=== PATIENT | female | born 1965 | race Caucasian/White ===

== ENCOUNTER → 2018-11-11 12:11 | Outpatient (CLI) | payer OTHER, SELFPAY ==
--- NOTE | 2018-11-11 12:14 | DI.RAD.S_ITS ---
PROCEDURE: XR CHEST 2V INDICATIONS: Cough TECHNIQUE: 2 views of the chest were acquired. COMPARISON: [facility], , CHEST 2 VIEW, 02/26/2009, 15:44. FINDINGS: Surgical changes and devices: None. Lungs and pleura: Lungs are clear. No pleural effusions or pneumothorax. Mediastinum: Mediastinal contours are normal. Heart size is normal. Bones and chest wall: No suspicious bony abnormalities. Soft tissues appear unremarkable. IMPRESSION: Normal for age, source of current cough symptoms is not seen. Dictated by: Yasmany Olea M.D. on 11/11/2018 at 13:08 Approved by: Yasmany Olea M.D. on 11/11/2018 at 13:09
== END ==
PROVIDERS: Visit Provider Registered Nurse
DX: R05 Cough (principal)
CPT/HCPCS: 71046

== ENCOUNTER → 2019-01-03 09:48 | Outpatient (CLI) | payer OTHER, SELFPAY ==
[2019-01-03 10:41] LABS: BUN Creatinine Ratio 17.5 (6-22); Blood Urea Nitrogen 14 mg/dL (7-17); Calcium 9.6 mg/dL (8.4-10.2); Carbon Dioxide 30 mmol/L (22-32); Chloride 103 mmol/L (98-107); Cholesterol 226 mg/dL (140-199); Estimated Glomerular Filt Rate > 60.0 mL/min (>60); Glucose 117 mg/dL (70-100); HDL Cholesterol 30 mg/dL (40-60); HEMOLYSIS < 15 (0-50); Potassium 4.4 mmol/L (3.4-5.1); Sodium 140 mmol/L (137-145); Triglycerides 461 mg/dL (35-150)
[2019-01-03 10:45] LABS: Creatinine Urine Random 171.2 mg/dL; Microalbumi Creatinin Ratio Ur 4.6 ug/mg CR (<30); Microalbumin Urine Random 0.8 mg/dL (0-1.6)
[2019-01-03 11:16] LABS: TSH w/ Reflex to FT4 4.02 uIU/mL (0.47-4.68)
== END ==
PROVIDERS: PCP Registered Nurse; Visit Provider Registered Nurse
DX: I10 Essential (primary) hypertension (principal)
CPT/HCPCS: 36415; 80048; 80061; 82043; 82570; 84443

== ENCOUNTER → 2019-01-04 09:59 | Outpatient (CLI) | payer OTHER, SELFPAY ==
[2019-01-04 11:09] LABS: Hemoglobin A1C% w Est Avg Glu 5.4 % (4.0-6.0)
== END ==
PROVIDERS: PCP Registered Nurse; Visit Provider Registered Nurse
DX: R73.9 Hyperglycemia, unspecified (principal)
CPT/HCPCS: 36415; 83036

== ENCOUNTER → 2019-05-02 13:31 | Outpatient (CLI) | payer OTHER, SELFPAY ==
--- NOTE | 2019-05-02 13:32 | DI.US.S_ITS ---
LIMITED ULTRASOUND OF LEFT BREAST: 05/02/2019 CLINICAL: Palpable, painful left breast lump. Comparison is made to exams dated: 05/02/2019 mammogram, 09/11/2016 mammogram - [facility], and 11/07/2012 mammogram - [facility]. Color flow and real-time ultrasound of the left breast 2-3 o'clock region were performed. Dinh scale images of the real-time examination were reviewed. Targeted ultrasound was performed in the region of the patient's reported focal painful palpable area of concern in the lateral left breast at 2:00 position 7 cm from the nipple (as indicated by the patient). No underlying breast mass or abnormality is identified. IMPRESSION: NEGATIVE 1) No ultrasound findings to explain patient's reported focal painful palpable area of concern in the lateral left breast at 2:00 position 7 cm from the nipple. Recommend clinical follow-up for further evaluation and management of the patient's reported symptoms. 2) There is no sonographic evidence of malignancy in the imaged areas of the lateral left breast. Return to annual screening mammography schedule is recommended. The patient is advised to monitor her breasts and to return sooner for re-evaluation should she feel anything grow or change. This exam was interpreted at Station ID: [id number]. Electronically Signed By: Alban Davis M.D. ecl/:05/02/2019 14:48:35 letter sent: Clinical Evaluation Ultrasound BI-RADS: 1 Negative
--- NOTE | 2019-05-02 13:32 | DI.MG.S_ITS ---
BILATERAL DIGITAL DIAGNOSTIC MAMMOGRAM 3D/2D: 05/02/2019 CLINICAL: Left breast lump with associated focal pain. Comparison is made to exams dated: 09/11/2016 mammogram - [facility] and 11/07/2012 mammogram - [facility]. There are scattered fibroglandular elements in both breasts. There is a triangular marker overlying the skin of the lateral left breast at the site of the patient's reported focal painful palpable breast abnormality. There is no underlying mass or abnormality on mammography. There is an asymmetry in the right breast central to the nipple at anterior depth which resolves with spot compression and tomosynthesis views, consistent with resolved summation artifact from superimposed benign fibroglandular tissues. There is an asymmetry in the superior right breast at middle depth which resolves with spot compression and tomosynthesis views, consistent with resolved summation artifact from superimposed benign fibroglandular tissues. No other significant masses, calcifications, or other findings are seen in either breast. IMPRESSION: INCOMPLETE: NEEDS ADDITIONAL IMAGING EVALUATION No mass or abnormality on mammography to correlate with the site of the patient's reported focal painful palpable abnormality of the lateral left breast. Targeted diagnostic ultrasound recommended for further evaluation, which will be performed immediately following this exam. This exam was interpreted at Station ID: [id number]. NOTE: For mammograms, a report in lay terms will be sent to the patient. Approximately 15% of breast malignancies will not be visualized mammographically. In the management of a palpable breast mass, a negative mammogram must not discourage biopsy of a clinically suspicious lesion. Electronically Signed By: Alban Davis M.D. ecl/:05/02/2019 14:45:22 ACR BI-RADS Category 0: Incomplete [id number]
== END ==
PROVIDERS: PCP Registered Nurse; Visit Provider Registered Nurse
DX: R92.8 Other abnormal and inconclusive findings on diagnostic imaging of breast (principal); N63.21 Unspecified lump in the left breast, upper outer quadrant; N64.4 Mastodynia
CPT/HCPCS: 76642; 77066; G0279

== ENCOUNTER → 2020-07-22 16:39 | Outpatient (CLI) | payer OTHER, SELFPAY ==
--- NOTE | 2020-07-22 17:05 | DI.RAD.S_ITS ---
PROCEDURE: XR ACUTE ABDOMEN SERIES INDICATIONS: acute abd pain, RLQ TECHNIQUE: One view chest and two views of the abdomen were acquired. COMPARISON: [facility], CR, XR ACUTE ABDOMEN SERIES, 10/07/2017, 10:39. FINDINGS: Surgical changes and devices: None. Chest: Lungs are clear. Heart size is normal. No pleural effusions. No pneumoperitoneum. Abdomen: Bowel gas pattern is normal. No suspicious calcifications. Visualized solid organ contours appear normal. Bones: No suspicious bony lesions. IMPRESSION: Normal bowel gas pattern, no sign of intestinal obstruction or perforation. Depending on the clinical status follow-up by CT scanning may become necessary. Dictated by: Yasmany Olea M.D. on 07/22/2020 at 18:31 Approved by: Yasmany Olea M.D. on 07/22/2020 at 18:32
--- NOTE | 2020-07-22 17:50 | DI.RAD.S_ITS ---
PROCEDURE: XR ELBOW RT MIN 3V INDICATIONS: right elbow pain TECHNIQUE: 3 views of the elbow were acquired. COMPARISON: None. FINDINGS: Bones: No fractures or dislocations. No suspicious bony lesions. Soft tissues: No elbow joint effusion. No suspicious soft tissue calcifications. IMPRESSION: Normal for age, source of current right elbow pain symptoms is not seen. Dictated by: Yasmany Olea M.D. on 07/22/2020 at 18:29 Approved by: Yasmany Olea M.D. on 07/22/2020 at 18:29
[2020-07-22 18:26] LABS: Add Manual Diff / Slide Review NO; Basophils Absolute Auto 100 /uL (0-100); Basophils Percent Auto 0.8 % (0-2); Eosinophils Absolute Auto 200 /uL (0-450); Eosinophils Percent Auto 2.7 % (2-4); Hematocrit 42.9 % (36-46); Hemoglobin 15.2 g/dL (12.0-16.0); Lymphocytes Absolute Auto 2500 /uL (1100-4500); Lymphocytes Percent Auto 34.7 % (25-40); Mean Corpuscular HGB Conc 35.3 % (30-36); Mean Corpuscular Hemoglobin 30.6 PG (26-34); Mean Corpuscular Volume 86.6 fL (80-100); Monocytes Absolute Auto 400 /uL (0-900); Monocytes Percent Auto 6.3 % (3-14); Neutrophils Absolute Auto 3900 /uL (1500-7000); Neutrophils Percent Auto 55.5 % (50-75); Platelet Count 177 X10^3/uL (150-400); Red Blood Cell Count 4.96 X10^6/uL (4.0-5.2); Red Cell Distribution Width 13.7 % (11.6-14.8); White Blood Cell Count 7.1 X10^3/uL (4.5-11.0)
[2020-07-22 18:43] LABS: Alanine Aminotransferase 35 IU/L (<35); Albumin 4.6 g/dL (3.5-5.0); Albumin Globulin Ratio 1.7 (1.0-2.8); Alkaline Phosphatase 85 U/L (38-126); Aspartate Aminotransferase 32 IU/L (14-36); BUN Creatinine Ratio 18.1 (6-22); Bilirubin Total 0.6 mg/dL (0.2-1.3); Blood Urea Nitrogen 15 mg/dL (7-17); Calcium 9.8 mg/dL (8.4-10.2); Carbon Dioxide 31 mmol/L (22-32); Chloride 104 mmol/L (98-107); Estimated Glomerular Filt Rate > 60.0 mL/min (>60); Globulin 2.7 g/dL (1.7-4.1); Glucose 101 mg/dL (70-100); HEMOLYSIS < 15 (0-50); Potassium 3.9 mmol/L (3.4-5.1); Sodium 140 mmol/L (137-145); Total Protein 7.3 g/dL (6.3-8.2)
[2020-08-01 13:02] LABS: Urea Breath Test >18YRS Negative
== END ==
PROVIDERS: PCP Registered Nurse; Referring Provider Registered Nurse; Visit Provider Registered Nurse
DX: R10.9 Unspecified abdominal pain (principal); Z86.19 Personal history of other infectious and parasitic diseases; M25.521 Pain in right elbow
CPT/HCPCS: 36415; 73080; 74022; 80053; 83013; 85025

== ENCOUNTER → 2020-08-09 10:13 | Outpatient (CLI) | payer OTHER, SELFPAY | PROVIDERS: PCP Registered Nurse; Visit Provider Registered Nurse | DX: R30.0 Dysuria (principal); N89.8 Other specified noninflammatory disorders of vagina; N94.9 Unspecified condition associated with female genital organs and menstrual cycle | CPT/HCPCS: 87086; 87210 ==

== ENCOUNTER → 2021-10-13 14:13 | Outpatient (CLI) | payer OTHER, SELFPAY ==
[2021-10-13 16:49] LABS: Add Manual Diff / Slide Review NO; Basophils Absolute Auto 100 /uL (0-100); Eosinophils Absolute Auto 200 /uL (0-450); Eosinophils Percent Auto 2.7 % (2-4); Hematocrit 45.6 % (36-46); Lymphocytes Absolute Auto 1900 /uL (1100-4500); Lymphocytes Percent Auto 27.1 % (25-40); Mean Corpuscular HGB Conc 35.1 % (30-36); Mean Corpuscular Hemoglobin 30.6 PG (26-34); Mean Corpuscular Volume 87.1 fL (80-100); Monocytes Absolute Auto 400 /uL (0-900); Neutrophils Absolute Auto 4400 /uL (1500-7000); Neutrophils Percent Auto 63.2 % (50-75); Platelet Count 167 X10^3/uL (150-400); Red Blood Cell Count 5.23 X10^6/uL (4.0-5.2); Red Cell Distribution Width 13.5 % (11.6-14.8)
[2021-10-13 17:24] LABS: Alanine Aminotransferase 40 IU/L (<35); Albumin 4.9 g/dL (3.5-5.0); Albumin Globulin Ratio 1.5 (1.0-2.8); Alkaline Phosphatase 83 U/L (38-126); Aspartate Aminotransferase 37 IU/L (14-36); Bilirubin Total 0.8 mg/dL (0.2-1.3); Blood Urea Nitrogen 13 mg/dL (7-17); Calcium 9.6 mg/dL (8.4-10.2); Carbon Dioxide 22 mmol/L (22-32); Chloride 108 mmol/L (98-107); Cholesterol 290 mg/dL (140-199); Estimated Glomerular Filt Rate > 60 mL/min (>60); Globulin 3.3 g/dL (1.7-4.1); Glucose 100 mg/dL (70-100); HDL Cholesterol 36 mg/dL (40-60); HEMOLYSIS 33 (0-50); Potassium 3.7 mmol/L (3.4-5.1); Sodium 143 mmol/L (137-145); Total Protein 8.2 g/dL (6.3-8.2); Triglycerides 518 mg/dL (35-150)
== END ==
PROVIDERS: PCP Physician Assistant; Referring Provider Physician Assistant; Visit Provider Physician Assistant
DX: R07.9 Chest pain, unspecified (principal); E78.1 Pure hyperglyceridemia
CPT/HCPCS: 36415; 80053; 80061; 85025

== ENCOUNTER → 2021-10-21 09:32 | Outpatient (CLI) | payer OTHER, SELFPAY ==
--- NOTE | 2021-10-21 | DI.MG.S_ITS ---
BILATERAL DIGITAL DIAGNOSTIC MAMMOGRAM 3D/2D: 10/21/2021 CLINICAL: Left breast pain and lump. Comparison is made to exams dated: 05/02/2019 mammogram, 09/11/2016 mammogram - [facility], and 11/07/2012 mammogram - [facility]. The tissue of both breasts is predominantly fatty. No significant masses, calcifications, or other findings are seen in either breast. Specifically, no finding to correspond to the patient's pain or palpable abnormality. Mammograms are stable. IMPRESSION: INCOMPLETE: NEEDS ADDITIONAL IMAGING EVALUATION There is no abnormality seen in the left breast to correspond with the palpable abnormality and pain at 4 o'clock. Ultrasound is recommended for full evaluation of this area. This was performed immediately following this exam. Mammograms are otherwise stable. This exam was interpreted at Station ID: [id number]. NOTE: For mammograms, a report in lay terms will be sent to the patient. Approximately 15% of breast malignancies will not be visualized mammographically. In the management of a palpable breast mass, a negative mammogram must not discourage biopsy of a clinically suspicious lesion. Electronically Signed By: Yelena vann/:10/21/2021 10:26:31 ACR BI-RADS Category 0: Incomplete [id number]
--- NOTE | 2021-10-21 | DI.US.S_ITS ---
LIMITED ULTRASOUND OF LEFT BREAST: 10/21/2021 CLINICAL: Focal left breast pain. Comparison is made to exams dated: 10/21/2021 mammogram and 05/02/2019 [facility]. Real-time ultrasound of the left breast 3-5 o'clock region was performed. Dinh scale images of the real-time examination were reviewed. No significant abnormalities were seen sonographically in the left breast. Specifically, no finding to correspond to the patient's pain or palpable abnormality. IMPRESSION: NEGATIVE There is no sonographic finding to explain pain or palpable abnormaltiy, and no evidence of malignancy. Return to annual mammogram screening schedule is recommended. Findings and recommendations were conveyed to the patient at time of exam. This exam was interpreted at Station ID: [id number]. Electronically Signed By: Yelena vann/:10/21/2021 10:51:48 Entry: - 10/22/2021 09:24:37 letter sent: Normal Exam Ultrasound BI-RADS: 1 Negative
== END ==
PROVIDERS: PCP Physician Assistant; Referring Provider Physician Assistant; Visit Provider Physician Assistant
DX: N64.59 Other signs and symptoms in breast (principal); N64.4 Mastodynia
CPT/HCPCS: 76642; 77066; G0279

== ENCOUNTER → 2021-10-30 10:28 | Outpatient (CLI) | payer OTHER, SELFPAY ==
--- NOTE | 2021-10-30 10:31 | DI.CT.S_ITS ---
PROCEDURE: CT ANGIO CHEST INDICATIONS: Chest pain, SOB TECHNIQUE: After the administration of intravenous contrast, 2 mm thick sections acquired from the pulmonary apices to the posterior costophrenic angles. 3-dimensional maximum intensity projection (MIP) coronal and sagittal reformats were then acquired through the thorax. For radiation dose reduction, the following was used: automated exposure control, adjustment of mA and/or kV according to patient size. COMPARISON: None. FINDINGS: Image quality: Excellent. Pulmonary arteries: Pulmonary arteries are normal in size, and demonstrate no intraluminal filling defects to suggest central pulmonary embolism. Lungs and pleura: Mild scarring within the bilateral upper lobes anteriorly, possibly related to prior radiation therapy treatment sequelae. Lungs are otherwise clear. No pleural effusions or pneumothorax. Central and peripheral airways are patent. Mediastinum: Heart size is normal, without pericardial effusion. Calcification of the coronary vasculature. No mediastinal or hilar adenopathy. Thoracic aorta is normal in caliber and enhancement. Esophagus is normal in caliber, without hiatal hernia. Bones and chest wall: No suspicious bony lesions. Ribs and thoracic spine appear intact throughout. Thyroid gland is within normal limits. No axillary or supraclavicular adenopathy. Abdomen: Visualized upper abdominal solid organs appear normal in the early arterial phase of enhancement. IMPRESSION: 1. No acute process. No pulmonary embolus. 2. Coronary artery disease. Dictated by: Jeremy Ceron M.D. on 10/30/2021 at 10:54 Approved by: Jeremy Ceron M.D. on 10/30/2021 at 10:57
[2021-10-30 12:34] LABS: Hemoglobin A1C% w Est Avg Glu 5.8 % (4.0-6.0)
[2021-10-30 12:35] LABS: Cholesterol 258 mg/dL (140-199); HDL Cholesterol 34 mg/dL (40-60); LDL Cholesterol Calculated 160 mg/dL (<100); Triglycerides 321 mg/dL (35-150)
[2021-10-30 13:09] LABS: TSH w/ Reflex to FT4 3.46 uIU/mL (0.47-4.68)
== END ==
PROVIDERS: PCP Physician Assistant; Referring Provider Physician Assistant; Visit Provider Physician Assistant
DX: I25.10 Atherosclerotic heart disease of native coronary artery without angina pectoris (principal); R07.9 Chest pain, unspecified; R06.02 Shortness of breath; E78.1 Pure hyperglyceridemia; Z83.3 Family history of diabetes mellitus
CPT/HCPCS: 36415; 71275; 80061; 83036; 84443; Q9967

== ENCOUNTER → 2022-02-17 12:28 | Outpatient (CLI) | payer OTHER, SELFPAY ==
--- NOTE | 2022-02-17 | DI.ECHO.S_ITS ---
[facility] +---------+ : : [address] : : : : [id number] : : : : Phone: [phone]---------+ Echocardiogram Report + + :Name: BETH CARTAGENA Study Date: 02/17/2022 Height: 62 in : :[facility] ReadingLocation: Weight: 195 lb : : Gender: Female BSA: 1.9 m2 : :: 1965 Age: 56 yrs BP: 153/100 mmHg: :Reason For Study: ATHEROSCLEROTIC HEART DISEASE : :Ordering Physician: ADWOA, : :SHAE Performed By: Indy De La Cruz : :Referring: SHAE ORONA : + + Interpretation Summary The ejection fraction is estimated to be 60-65%. Diastolic parameters suggest probable normal left ventricular diastolic function and normal filling pressures. The right ventricle is normal in size and function. No significant valvular abnormalities. Unable to estimate PASP. Procedure: A two-dimensional transthoracic echocardiogram with color flow and Doppler was performed. The study quality was technically adequate. There is no prior echocardiogram noted for this patient. The patient was in sinus rhythm with heart rates between 66-74 bpm during the exam. Left Ventricle: The left ventricle is normal in size and wall thickness. The ejection fraction is estimated to be 60-65%. Diastolic parameters suggest probable normal left ventricular diastolic function and normal filling pressures. Right Ventricle: The right ventricle is normal in size and function. Atria: The left atrial size is normal. Right atrial size is normal. There is no Doppler evidence for an interatrial shunt. Mitral Valve: The mitral valve is normal in structure and function. There is trace mitral regurgitation. Aortic Valve: The aortic valve is trileaflet. The aortic valve opens well. There is no aortic valve stenosis. No aortic regurgitation is present. Tricuspid Valve: The tricuspid valve is normal in structure and function. There is trace tricuspid regurgitation. Pulmonic Valve: The pulmonic valve leaflets are thin and pliable; valve motion is normal. There is trace pulmonic regurgitation. Great Vessels: The aortic root is normal size. The dimensions of the ascending aorta are normal. The IVC is of normal diameter and collapses greater than 50% with a sniff. This suggests a low right atrial pressure of 3 mm Hg. Pericardium/ Pleura There is no pericardial effusion. There is no pleural effusion. MMode/2D Measurements & Calculations LVIDd: 4.6 cm LVOT diam: 2.0 cm LVIDs: 2.9 cm Ao root diam: 3.1 cm FS: 36.1 % asc Aorta Diam: 3.2 cm IVSd: 0.97 cm Ao Arch Diam (Prox Trans): 3.1 cm LVPWd: 0.96 cm LV glover. diameter/BSA (cm/m^2): 2.4 LV sys. diameter/BSA (cm/m^2): 1.6 LA A2 area: 16.6 cm2 RA long axis: 5.0 cm LA A4 area: 18.1 cm2 RA area: 14.6 cm2 LA length (vol): 5.0 cm RA vol: 36.3 ml LA vol: 51.2 ml RA : 19.2 ml/m2 LA vol index: 27.1 ml/m2 IVC diam: 0.63 cm RVD1 (basal): 3.3 cm TAPSE: 2.0 cm Doppler Measurements & Calculations Ao V2 max: 122.8 cm/sec LVOT Max Reinaldo: 92.9 cm/sec Ao V2 mean: 81.8 cm/sec LV V1 max P.5 mmHg Ao max P.0 mmHg LV V1 VTI: 19.9 cm Ao mean P.0 mmHg DES(I,D): 2.5 cm2 Ao V2 VTI: 24.5 cm DES(V,D): 2.3 cm2 sev ratio: 0.81 DES indexed to BSA (cm^2/m^2): 1.3 MV E max reinaldo: 60.8 cm/sec TR max reinaldo: 202.4 cm/sec MV A max reinaldo: 64.3 cm/sec TR max P.4 mmHg MV E/A: 0.94 PA V2 max: 96.1 cm/sec Med Peak E' Reinaldo: 7.2 cm/sec PA V2 mean: 65.7 cm/sec E/E' med: 8.5 PA mean P.0 mmHg Lat Peak E' Reinaldo: 9.4 cm/sec PA pr(Accel): 27.6 mmHg E/E' lat: 6.5 E/e' average: 7.5 MV dec time: 0.22 sec SV(LVOT): 60.7 ml Reading Physician:04:23 PM
== END ==
PROVIDERS: PCP Family Medicine; Referring Provider Nurse Practitioner Acute Care; Visit Provider Nurse Practitioner Acute Care
DX: E78.5 Hyperlipidemia, unspecified (principal); I25.10 Atherosclerotic heart disease of native coronary artery without angina pectoris
CPT/HCPCS: 93306

== ENCOUNTER → 2022-06-25 11:06 | Outpatient (CLI) | payer OTHER, SELFPAY ==
[2022-06-25 11:50] LABS: Creatinine Urine Random 216.9 mg/dL
[2022-06-25 11:56] LABS: Microalbumi Creatinin Ratio Ur 5.5 ug/mg CR (<30); Microalbumin Urine Random 1.2 mg/dL (0-1.6)
[2022-06-25 12:03] LABS: Alanine Aminotransferase 35 IU/L (<35); Albumin 4.8 g/dL (3.5-5.0); Albumin Globulin Ratio 1.5 (1.0-2.8); Alkaline Phosphatase 80 U/L (38-126); Aspartate Aminotransferase 31 IU/L (14-36); BUN Creatinine Ratio 20.3 (6-22); Bilirubin Total 1.1 mg/dL (0.2-1.3); Blood Urea Nitrogen 16 mg/dL (7-17); Calcium 9.7 mg/dL (8.4-10.2); Carbon Dioxide 29 mmol/L (22-32); Chloride 103 mmol/L (98-107); Cholesterol 228 mg/dL (140-199); Estimated Glomerular Filt Rate > 60 mL/min (>60); Globulin 3.1 g/dL (1.7-4.1); Glucose 116 mg/dL (70-100); HDL Cholesterol 36 mg/dL (40-60); HEMOLYSIS < 15 (0-50); LDL Cholesterol Calculated 113 mg/dL (<100); Potassium 4.1 mmol/L (3.4-5.1); Sodium 143 mmol/L (137-145); Total Protein 7.9 g/dL (6.3-8.2); Triglycerides 395 mg/dL (35-150)
[2022-06-25 12:04] LABS: Hemoglobin A1C% w Est Avg Glu 5.8 % (4.0-6.0)
[2022-06-25 12:16] LABS: Vitamin D 25 Hydroxy (D3) 36.7 ng/mL (30.0-100.0)
[2022-06-25 12:30] LABS: TSH w/ Reflex to FT4 4.27 uIU/mL (0.47-4.68)
[2022-06-25 13:05] LABS: Folate 5.4 ng/mL (2.76-20.0); Vitamin B12 421 pg/mL (239-931)
== END ==
PROVIDERS: PCP Family Medicine; Referring Provider Family Medicine; Visit Provider Family Medicine
DX: E78.1 Pure hyperglyceridemia (principal); R73.03 Prediabetes; R03.0 Elevated blood-pressure reading, without diagnosis of hypertension; E56.9 Vitamin deficiency, unspecified; Z13.29 Encounter for screening for other suspected endocrine disorder
CPT/HCPCS: 36415; 80053; 80061; 82043; 82306; 82570; 82607; 82746; 83036; 84443